=== PATIENT | female | born 1990 | race Caucasian/White ===

== ENCOUNTER 2024-04-19 08:20 | Emergency (ER) | payer BC, SELFPAY ==
[2024-04-19 08:21] VITALS: BP 142/95
--- NOTE | 2024-04-19 09:05 | ED.GENMED ---
History of Present Illness
General
Chief Complaint: Swallowing Problem
Source: patient
Exam Limitations: none
Time Seen by Provider: 04/19/24 08:44
Nursing documentation reviewed up to this point in time: agreed with
History of Present Illness
History of Present Illness:
Patient is a 33-year-old female past medical history of PCOS hypothyroidism presents to the ER for evaluation. She reports off-and-on for the past several years she has had issues that are intermittent where she feels that there is something in her
throat and she has difficulty swallowing. She has been to her family doctor for this and had an ultrasound which was negative however today was the worst ever. She could not even get her medication down this morning.
She does not describe this as a sore throat like a viral infection she denies any fever chills nasal congestion. She denies any shortness of breath. She denies any obvious neck swelling.
Past History
Past History
ED Past Medical History: Asthma, Hypothyroidism and Other (PCOS)
ED Past Surgical History: and Orthopedic
Social History
Tobacco: Non-smoker
Review of Systems
Review of Systems
Allergies reviewed?: Yes
All Other Systems: ROS reviewed and negative except as documented in HPI and ROS
Constitutional: Reports no symptoms; Denies fever, fatigue or chills
EENT: Reports other (difficulty swallowing )
ABD/GI: Reports no symptoms; Denies abdominal pain, nausea or vomiting
: Reports no symptoms
Musculoskeletal: Reports no symptoms
Skin: Reports no symptoms
Neurological: Reports no symptoms
Psychiatric: Reports no symptoms
Phy Exam
General Physical Exam
General Presentation: no apparent distress
General age: appears stated age
General Skin: warm and dry
General Habitus: normal
General Mental: alert
General Hydration: appears well hydrated
ENT Exam
ENT Exam: EOMI, pharynx normal, neck supple and other (tolerating without difficulty )
Neurological Exam
Neurological Exam: alert and oriented x3
Musculoskeletal Exam
Musculoskeletal Exam: full ROM
Skin Exam
Skin Exam: normal color and warm/dry
Psychiatric Exam
Psychiatric Exam: normal mood/affect
Course
Orders/Labs/Results
Orders:
Orders
04/19/24 09:03
CT Neck With Iv Contrast Urgent
Comment:
Reason For Exam: difficulty swallowing
IV Insert/Care/Rem.- Treatment PRN
0.9% Sodium Chloride 1000 ml [Nss] 1,000 ml IV BOLUS
04/19/24 09:34
Complete Blood Count/With Diff Urgent
Comprehensive Metabolic Panel Urgent
HCG, Serum Qualitative Screen Urgent
04/19/24 10:45
Add On- LAB Urgent
Tests Added?: serum qual
Abnormal Lab Results
04/19/24
09:34
Hct 36.9 L %
(37.0-47.0)
04/19/24 09:34
04/19/24 09:34
Vital Signs
Initial and Last Documented VS:
Initial Vital Signs
Temp Pulse Resp BP Pulse Ox
98 F 86 16 142/95 100
04/19/24 08:21 04/19/24 08:21 04/19/24 08:21 04/19/24 08:21 04/19/24 08:21
Last Documented Vital Signs
Temp Pulse Resp BP Pulse Ox
98 F 86 16 142/95 100
04/19/24 08:21 04/19/24 08:21 04/19/24 08:21 04/19/24 08:21 04/19/24 08:21
Salvage Mend Worker consulted with Physician
Salvage Mend Worker consulted with physician?: Yes
Name of Physician Consulted: Aaron
MDM/Problems Addressed
MDM/Problems Addressed:
Patient is a 33Yr old female who has had several episodes of feel the sensation something stuck in her throat having difficulty swallowing. She does have this in the past it resolves on its own. She has normal labs including normal thyroid. No
obvious abnormalities on exam. Patient is tolerating secretions well Case discussed ED physician CAT scan done and negative for any acute findings discussed close outpatient follow-up with ENT /GI possible esophageal spasm
*Radiology
Radiology exam reviewed: radiology read reviewed
*Pulse Oximetry
Patient hypoxic: no
*Critical Care Note
Total Time (30-74mins, 75-104mins- exclusive of procedures): Not Applicable
ED Attending Note
-
Portions of this chart may have been created with voice recognition software.� Occasional wrong word or��sound alike� substitutions may have occurred due to the inherent limitations of voice recognition software.
Discharge Plan
Departure
Patient Disposition: Home (Routine Discharge)
Date of Disposition: 04/19/24
Time of Disposition: 12:48
Patient with high blood pressure during this ER visit?: Yes
Covid-19: Not Applicable
Discharge Problem:
Dysphagia
Instructions: Dysphagia
Prescriptions:
No Action
cetirizine [Zyrtec] 10 MG tablet
10 mg PO DAILY
metformin 1,000 mg Tablet
1,000 mg PO QPM
levothyroxine [Synthroid] 100 mcg Tablet
100 mcg PO DAILY
levothyroxine [Synthroid] 88 mcg Tablet
88 mcg PO DAILY
albuterol sulfate 90 mcg/actuation Hfa Aerosol Inhaler
2 puff INHALATION PRN PRN (Reason: SOB, Wheezes)
Wellbutrin
1 tab PO DAILY
Referrals:
Eloise Booth MD [Active] -
Renae Bernabe MD [Family Provider] -
Marco Medeiros MD [Active] -
Activity Restrictions/Additional Instructions:
As discussed it is recommended you follow-up with ENT/GI for further evaluation of your symptoms return if any worsening of symptoms.
Your CAT scan and blood work was unremarkable
Interventions
Interventions:
*Risk Screen - Suicide Last Done: 04/19/24 08:21
*General Assessment Last Done: 04/19/24 08:21
*Neglect/Abuse Screening Last Done: 04/19/24 08:21
Discharge Date and Time
Print Language: URDU
[2024-04-19 09:35] VITALS: BP 125/68
[2024-04-19] MEDS: NSS 1000 IV (09:38)
[2024-04-19 10:00] VITALS: BP 109/55
[2024-04-19 10:01] LABS: % Basophils 0.4 % (0-2); % Eosinophils 2.5 % (0-6); % Immature Granulocytes 0.3 % (0-0.5); % Lymphocytes 32.9 % (20.5-51.1); % Monocytes 6.2 % (1.7-9.3); % Neutrophils 57.7 % (42.2-75.2); Absolute Eosinophils 0.2 10^3/uL (0-0.7); Absolute Lymphocytes 2.5 10^3/uL (1.2-3.4); Absolute Monocytes 0.5 10^3/uL (0.1-0.6); Absolute Neutrophils 4.4 10^3/uL (1.4-6.5); Hematocrit 36.9 % (37.0-47.0); Hemoglobin 12.6 g/dL (12.0-16.0); Mean Corp Hgb Conc. 34.1 g/dL (33.0-37.0); Mean Corpuscular Hgb 28.5 pg (27.0-31.0); Mean Corpuscular Volume 83.5 fL (81.0-99.0); Mean Platelet Volume 8.8 fL (7.4-10.4); Nucleated Red Blood Cells % 0 %; Platelet Count 261 10^3/uL (130-400); Red Blood Cell Count 4.42 10^6/uL (4.20-5.40); Red Cell Dist. Width 12.3 % (11.5-14.5); White Blood Cell Count 7.6 10^3/uL (4.8-10.8)
[2024-04-19 10:29] LABS: ALT (SGPT) 22 U/L (0-35); AST (SGOT) 19 U/L (14-36); Albumin 4.6 g/dl (3.5-5.0); Alkaline Phosphatase 57 U/L (38-126); Blood Urea Nitrogen 13 mg/dl (7-17); Calcium 9.6 mg/dl (8.4-10.2); Carbon Dioxide 25 mmol/L (22-30); Chloride 103 mmol/L (98-107); Glucose 96 mg/dl (70-99); Potassium 4.2 mmol/L (3.5-5.1); Sodium 141 mmol/L (135-145); Total Bilirubin 0.6 mg/dl (0.2-1.3); Total Protein 7.2 g/dl (6.3-8.2); eGFR > 60.00
[2024-04-19 11:31] LABS: HCG, Serum Qualitative Screen Negative
[2024-04-19 15:38] LABS: TSH Reflex To Free T4 2.85 uIU/ml (0.47-4.68)
== END 2024-04-19 12:50 | disposition home or self-care (01) ==
LOC: EMR 08:20
PROVIDERS: Nurse Practitioner; EMERGENCY PHYSICIAN Emergency Medicine; FAMILY PHYSICIAN Family Medicine
DX: R13.10 Dysphagia, unspecified (principal); R03.0 Elevated blood-pressure reading, without diagnosis of hypertension; E03.9 Hypothyroidism, unspecified; E28.2 Polycystic ovarian syndrome
CPT/HCPCS: 99285; 96360; 70491; 80053; 84443; 84703; 85025; Q9967

== ENCOUNTER → 2025-06-17 08:57 | Outpatient (REF) | payer BC, SELFPAY | LOC: WDC 08:57 | PROVIDERS: ATTENDING PHYSICIAN Nurse Practitioner Adult Health | DX: M79.622 Pain in left upper arm (principal); N64.4 Mastodynia | CPT/HCPCS: 76642; 77062; 77066 ==

== ENCOUNTER 2025-06-27 20:17 | Emergency (ER) | payer BC, SELFPAY ==
[2025-06-27 20:24] VITALS: BP 118/82
--- NOTE | 2025-06-27 22:40 | ED.GENMED ---
History of Present Illness
General
Chief Complaint: Musculo-Skeletal Complaint
Source: patient
Exam Limitations: none
Time Seen by Provider: 06/27/25 21:02
Nursing documentation reviewed up to this point in time: agreed with
History of Present Illness
History of Present Illness:
Patient is a 34-year female who was playing video games sports with her kids last week and moving her arm in different directions. Since then she has had right shoulder pain. No other injuries. She has been alternating Tylenol Motrin. She is
right-hand dominant. No trauma.
Past History
Past History
ED Past Medical History: Asthma, Hypothyroidism and Other (PCOS)
ED Past Surgical History: and Orthopedic
Social History
Tobacco: Non-smoker
Phy Exam
General Physical Exam
General Presentation: no apparent distress
General age: appears stated age
General Skin: warm and dry
General Habitus: normal
General Mental: alert
General Hydration: appears well hydrated
Neurological Exam
Neurological Exam: alert and oriented x3
Musculoskeletal Exam
Musculoskeletal Exam: other (Normal inspection to right shoulder pain with abduction mildly tender throughout intact distal sensation strong pulses)
Skin Exam
Skin Exam: normal color and warm/dry
Psychiatric Exam
Psychiatric Exam: normal mood/affect
Course
Orders/Labs/Results
Orders:
Orders
06/27/25 20:18
Shoulder, Right, Trauma [CR Shoulder, Trauma - Right] Urgent
Comment:
Reason For Exam: pain, decreased ROM
06/27/25 22:39
Acetaminophen [Tylenol] 1,000 mg PO NOW STA
Ketorolac [Toradol] 30 mg IM NOW STA
06/27/25 22:50
Sling Right-Treatment ONCE
Vital Signs
Initial and Last Documented VS:
Initial Vital Signs
Temp Pulse Resp BP Pulse Ox
99.0 F 84 16 118/82 100
06/27/25 20:24 06/27/25 20:24 06/27/25 20:24 06/27/25 20:24 06/27/25 20:24
Last Documented Vital Signs
Temp Pulse Resp BP Pulse Ox
99.0 F 84 16 118/82 100
06/27/25 20:24 06/27/25 20:24 06/27/25 20:24 06/27/25 20:24 06/27/25 22:44
MDM/Problems Addressed
Differential Diagnosis Includes:
Not limited to overuse injury tendinitis
MDM/Problems Addressed:
Symptoms are consistent with likely tendinitis/ shoulder sprain strain will DC with sling NSAIDs Tylenol Ortho follow-up
*Radiology
Radiology exam reviewed: radiology read reviewed
*Pulse Oximetry
SaO2: 100
Oxygen Mode of Delivery: Room air
Patient hypoxic: no
*Critical Care Note
Total Time (30-74mins, 75-104mins- exclusive of procedures): Not Applicable
ED Attending Note
-
Portions of this chart may have been created with voice recognition software.� Occasional wrong word or��sound alike� substitutions may have occurred due to the inherent limitations of voice recognition software.
Discharge Plan
Departure
Patient Disposition: Home (Routine Discharge)
Date of Disposition: 06/27/25
Time of Disposition: 22:44
Patient with high blood pressure during this ER visit?: No
Condition: Fair
Covid-19: Not Applicable
Discharge Problem:
shoulder pain
Instructions: How to Use a Shoulder Sling, Shoulder pain - ED (DC)
Prescriptions:
No Action
cetirizine [Zyrtec] 10 MG tablet
10 mg PO DAILY
metformin 1,000 mg Tablet
1,000 mg PO QPM
levothyroxine [Synthroid] 100 mcg Tablet
100 mcg PO DAILY
levothyroxine [Synthroid] 88 mcg Tablet
88 mcg PO DAILY
albuterol sulfate 90 mcg/actuation Hfa Aerosol Inhaler
2 puff INHALATION PRN PRN (Reason: SOB, Wheezes)
Wellbutrin
1 tab PO DAILY
Referrals:
Avtar Donis MD [Active, Orthopedics]
Neema Yi CRNP [Family Provider, Internal Medicine]
Activity Restrictions/Additional Instructions:
Wear sling for support until seen and evaluated by orthopedics. Ice the affected area several times a day. Alternate between ibuprofen and Tylenol. Please be sure to remove sling several times a day and do gentle range of motion exercises. Call
orthopedics Sunday for an appoint in the next several days .
return if any worsening of symptoms.
Interventions
Interventions:
*Risk Screen - Suicide Last Done: 06/27/25 23:00
*General Assessment Last Done: 06/27/25 23:00
*Neglect/Abuse Screening Last Done: 06/27/25 23:00
*ED COVID-19 Vaccine History Last Done: 06/27/25 23:00
*ED Influenza Vaccine History Last Done: 06/27/25 23:00
[facility] Fall Risk Assessment Tool Last Done: 06/27/25 23:00
*Nursing Disposition Last Done: 06/27/25 23:17
ED-Musculoskeletal Assessment Last Done: 06/27/25 22:59
Discharge Date and Time
Discharge Date/Time: 06/27/25 23:04
Print Language: [id number]
[2025-06-27] MEDS: TYLENOL 1000 MG PO (22:55)
[2025-06-27] MEDS: TORADOL 30 MG IM (22:56)
== END 2025-06-27 23:04 | disposition home or self-care (01) ==
LOC: EMR 20:17
PROVIDERS: EMERGENCY PHYSICIAN Emergency Medicine; FAMILY PHYSICIAN Nurse Practitioner Adult Health
DX: M25.511 Pain in right shoulder (principal); J45.909 Unspecified asthma, uncomplicated; E03.9 Hypothyroidism, unspecified
CPT/HCPCS: 96372; 99284; 73030